=== PATIENT | male | born 1965 | race Caucasian/White ===

== ENCOUNTER 2019-10-02 11:13 | Emergency (ER) | payer OTHER, SELFPAY ==
[2019-10-02 11:29] VITALS: BP 132/76; PULSE 64; RESP 16; TEMP 36.7; O2SAT 99
--- NOTE | 2019-10-02 11:45 | ED.EAR ---
HPI - Ear Problem General Chief complaint: Ear Stated complaint: ear infection Time Seen by Provider: 10/02/19 11:45 Source: patient Mode of arrival: ambulatory Limitations: no limitations History of Present Illness HPI Narrative: Gerald Rodgers is a 54 yo male with PMH HTN, high cholesterol, who express care with left-sided ear pain x4 to 5 days. Does not take antihistamines due to cardiology meds. Patient states that his ear has been bothering him for a while but this enlarged lymph node on the left has become quite tender. And overall not improving Related Data Home Medications Medication Instructions Recorded Confirmed amlodipine 10 mg PO DAILY 04/06/19 10/02/19 atorvastatin 80 mg PO DAILY 04/06/19 10/02/19 losartan 25 mg PO DAILY 04/06/19 10/02/19 metoprolol succinate 100 mg PO DAILY 04/06/19 10/02/19 Allergies Allergy/AdvReac Type Severity Reaction Status Date / Time No Known Allergies Allergy Verified 10/02/19 11:47 Review of Systems Review of Systems: Narrative: CONSTITUTIONAL: Denies fever, chills, sweats. EYES: Denies visual changes, redness, discharge. ENT: Denies rhinorrhea, congestion, sore throat, left otalgia. Enlarged node under left jaw CARDIOVASCULAR: Denies chest pain, palpitations, edema. RESPIRATORY: Denies dyspnea, wheezing, cough GASTROINTESTINAL: Denies abdominal pain, nausea, vomiting, diarrhea. GENITOURINARY: Denies dysuria, hematuria, abnormal discharge SKIN: Denies rash or itching. NEUROLOGIC: Denies numbness, or focal weakness. PSYCHIATRIC: Denies anxiety or depression. [facility]LY [facility] Past Medical History Medical History Anxiety Hypercholesteremia Hypertension OCD (obsessive compulsive disorder) Right hand fracture Surgical History Surgical History History of inguinal hernia repair Social History Social History Smoking status: Former smoker Alcohol intake: never Gender identity (if verbalized by the patient): Male Comments At time of signature, I agree with nursing past medical, surgical, social and family history. There is no relevant family history pertinent to the presenting complaint. Exam Narrative: Exam Narrative: GENERAL: This is a well-nourished, well-developed patient, in mild distress. HEAD: normocephalic, atraumatic. EYES: Sclera clear/white. Vision is grossly intact. EARS: External ears normal, TMs normal without perforation R ear pain with fluid behind TM. Hearing grossly intact. NOSE: External nose normal without nasal discharge, nares without redness, no rhinorrhea. THROAT: Mucous membranes moist, posterior pharynx R LN enlargement [place] NECK: Neck supple, non-tender CARDIOVASCULAR: Regular rate and rhythm without murmurs, gallops, or rubs. RESPIRATORY: Clear to auscultation. Breath sounds equal bilaterally. No wheezes, rales, or rhonchi. GASTROINTESTINAL: Abdomen soft, non-tender, SKIN: warm, intact with no suspicious lesions or rash, good texture and turgor. NEURO: awake, alert, and oriented to person, place and time. There were no obvious focal neurologic abnormalities. Steady gait EXTREMITIES: Normal range of motion. BACK: Nontender without deformity Course Course Emergency Course: started on keflex - discussed using raul martinez - follow up with pcp Vital Signs Vital signs: Vital Signs Temperature 98.0 F 10/02/19 11:29 Pulse Rate 64 10/02/19 11:29 Respiratory Rate 16 10/02/19 11:29 Blood Pressure 132/76 10/02/19 11:29 Pulse Oximetry 99 10/02/19 11:29 Temperature 98.0 F 10/02/19 11:29 Pulse Rate 64 10/02/19 11:29 Respiratory Rate 16 10/02/19 11:29 Blood Pressure 132/76 10/02/19 11:29 Pulse Oximetry 99 10/02/19 11:29 Medical Decision Making Differential Diagnosis Differential Diagnosis: Ear pain versus otitis versus viral sy
== END 2019-10-02 11:58 | disposition home or self-care (01) ==
PROVIDERS: Emergency Provider Nurse Practitioner; PCP Emergency Medicine
DX: H66.002 Acute suppurative otitis media without spontaneous rupture of ear drum, left ear (principal); I10 Essential (primary) hypertension; E78.00 Pure hypercholesterolemia, unspecified; Z87.891 Personal history of nicotine dependence
CPT/HCPCS: 99213; G0463

== ENCOUNTER 2020-04-07 10:05 | Emergency (ER) | payer OTHER, SELFPAY ==
--- NOTE | 2020-04-07 10:09 | ED.GENADULT ---
HPI - General Adult General Chief complaint: Ear Stated complaint: ear pain Time Seen by Provider: 04/07/20 10:09 Source: patient Mode of arrival: ambulatory Limitations: no limitations History of Present Illness HPI narrative: 54-year-old male patient presents to the [facility] with complaints of left ear pain for the past 2 days. Patient states the pain does radiate down to the left jaw periodically. Patient states that first when he wakes up in the morning he does feel slightly dizzy but as he gets up and moves around it does improve. Denies any fevers, body aches or chills. Denies any runny nose, stuffy nose or sore throat. Patient denies any coughing, chest pain or shortness of breath. Related Data Home Medications Medication Instructions Recorded Confirmed amlodipine 10 mg PO DAILY 04/06/19 04/07/20 atorvastatin 80 mg PO DAILY 04/06/19 04/07/20 losartan 50 mg PO DAILY 04/06/19 04/07/20 metoprolol succinate 100 mg PO DAILY 04/06/19 04/07/20 Allergies Allergy/AdvReac Type Severity Reaction Status Date / Time No Known Allergies Allergy Verified 04/07/20 10:17 Review of Systems Review of Systems: Narrative: CONSTITUTIONAL: Denies fever, chills, or sweats. EYES: Denies visual changes, redness, or discharge. ENT: Denies rhinorrhea, congestion, sore throat, positive left otalgia. CARDIOVASCULAR: Denies chest pain, palpitations, or edema. RESPIRATORY: Denies cough or dyspnea. GASTROINTESTINAL: Denies abdominal pain, nausea, vomiting, or diarrhea. GENITOURINARY: Denies dysuria or hematuria. SKIN: Denies rash or itching. MUSCULOSKELETAL: Denies back pain, joint pain, or myalgia. NEUROLOGIC: Denies headache, numbness, or weakness. PSYCHIATRIC: Denies anxiety or depression. [facility] Past Medical History Medical History (Updated 04/07/20 @ 10:25 by OTIS Gross) Anxiety Hypercholesteremia Hypertension OCD (obsessive compulsive disorder) Right hand fracture Surgical History Surgical History History of inguinal hernia repair Social History Social History Smoking status: Former smoker Alcohol intake: never Gender identity (if verbalized by the patient): Male Comments At the time of my signature I agree with nursing past medical history, surgical, social, and family history. There is no relevant family history pertinent to the presenting complaint. Exam Narrative: Exam Narrative: GENERAL: Well-appearing, well-nourished, and in no acute distress. HEAD: Normocephalic, atraumatic. EYES: PERRLA and EOMI. ENT: Nares clear, no rhinorrhea or epistaxis. Mucous membranes moist. Posterior pharynx does have what appears to be an aphthous ulcer noted to the left posterior pharynx. No erythema noted to bilateral ears but does appear to have a little bit of fluid noted to bilateral ears. No erythema or swelling noted to the canals. NECK: Supple. No lymphadenopathy CHEST: Clear to auscultation. No respiratory distress. HEART: Regular rate and rhythm. No murmur heard. Normal peripheral pulses. ABDOMEN: Soft, nontender, nondistended, normal active bowel sounds. EXTREMITIES: Normal range of motion. No edema. SKIN: Warm, dry, no rash. NEURO: No focal deficits. Alert and oriented x3. Course Vital Signs Vital signs: Vital Signs Temperature 36.5 C 04/07/20 10:17 Pulse Rate 80 04/07/20 10:17 Respiratory Rate 20 04/07/20 10:17 Blood Pressure 159/81 H 04/07/20 10:17 Pulse Oximetry 100 04/07/20 10:17 Temperature 36.5 C 04/07/20 10:17 Pulse Rate 80 04/07/20 10:17 Respiratory Rate 20 04/07/20 10:17 Blood Pressure 159/81 H 04/07/20 10:17 Pulse Oximetry 100 04/07/20 10:17 Vital signs reviewed The patient has been informed that they may have pre-hypertension or Hypertension based on a BP reading in the department. I recommend that the patient call the primary care provider l
[2020-04-07 10:17] VITALS: BP 159/81; PULSE 80; RESP 20; TEMP 36.5; O2SAT 100
== END 2020-04-07 10:34 | disposition home or self-care (01) ==
PROVIDERS: Emergency Provider Nurse Practitioner Family; PCP Emergency Medicine
DX: H66.92 Otitis media, unspecified, left ear (principal); H73.893 Other specified disorders of tympanic membrane, bilateral; Z87.891 Personal history of nicotine dependence; E78.00 Pure hypercholesterolemia, unspecified; I10 Essential (primary) hypertension; F42.9 Obsessive-compulsive disorder, unspecified
CPT/HCPCS: 99213; G0463

== ENCOUNTER 2020-06-13 17:31 | Emergency (ER) | payer OTHER, SELFPAY ==
[2020-06-13] VITALS (11 sets, daily range): BP systolic 129–147; BP diastolic 87–97; PULSE 47–66; RESP 11–20; TEMP 36.8; O2SAT 98–100
--- NOTE | ~2020-06-13 | XR_ITS ---
EXAMINATION: XR chest 1V portable 06/13/2020 18:05 INDICATION: Left-sided chest pain PROCEDURE: AP portable chest COMPARISON: 03/27/2016 FINDINGS: The lungs are clear. The cardiomediastinal silhouette is within normal limits. There are no pleural effusions. There is no pneumothorax suspected. IMPRESSION: 1: NO ACUTE CARDIOPULMONARY DISEASE. Reviewed, dictated and finalized at location A. NESS APPLICATIONS ANALYST
--- NOTE | 2020-06-13 17:43 | ED.CHESTPAIN ---
HPI - Chest Pain General Chief Complaint: Chest Pain Stated Complaint: chest pain/dizziness Time Seen by Provider: 06/13/20 17:43 History of Present Illness HPI narrative: 54 yo male present to the ED with chest pain. He reports sudden onset of chest pressure and dizziness around 1500 today. This was associated with mild SOB. He believes that the pain was brought on by stress. It resolved spontaneously, but afterwards he was feeling extremely fatigued. He also reports being very hungry, but the thought of food nauseated him. He says that he has been under extreme stress recently and has not been sleeping. He thought his symptoms may have been due to anxiety, but was not sure. He reports that he had a negative cath 2 years ago. Par[employer] Post Order Clerk told him he may have had an TN at some point in the past. Related Data Home Medications Medication Instructions Recorded Confirmed amlodipine 10 mg PO DAILY 04/06/19 04/07/20 atorvastatin 80 mg PO DAILY 04/06/19 04/07/20 losartan 50 mg PO DAILY 04/06/19 04/07/20 metoprolol succinate 100 mg PO DAILY 04/06/19 04/07/20 Allergies Allergy/AdvReac Type Severity Reaction Status Date / Time No Known Allergies Allergy Verified 06/13/20 19:06 Review of Systems Review of Systems: All systems reviewed & are unremarkable except as noted in HPI and below Constitutional: Constitutional: Reports fatigue and Denies fever(s) Eyes: Eyes: Reports no additional eye complaints ENT: Denies sore throat Cardiovascular: Cardiovascular: Reports chest pain and Denies radiating jaw, neck or arm pain Respiratory: Respiratory: Denies chest congestion, Denies cough and Reports dyspnea Gastrointestinal: Gastrointestinal: Denies abdominal pain, Denies constipation, Denies diarrhea, Reports nausea and Denies vomiting Genitourinary: Genitourinary: Denies dysuria Musculoskeletal: Musculoskeletal: Denies back pain Neurologic: Denies confusion, Reports dizziness, Denies syncope and Reports weakness Psychiatric: Psychiatric: Reports anxiety PMFSH Past Medical History Medical History Anxiety Hypercholesteremia Hypertension OCD (obsessive compulsive disorder) Right hand fracture Surgical History Surgical History History of inguinal hernia repair Social History Social History Smoking status: Former smoker Alcohol intake: never Gender identity (if verbalized by the patient): Male Exam Const: General: healthy appearing, no acute distress and alert Orientation/consciousness: patient oriented x3 HENMT: Head: normal to inspection Neck: Neck: normal visual inspection and no lymphadenopathy Chest: Chest palpation & inspection: no tenderness Resp: Effort & Inspection: normal respiratory effort Auscultation: clear to auscultation bilaterally, no rales, no rhonchi and no wheezes Cardio: Jugular venous distension: no JVD Rate: bradycardic Rhythm: regular rhythm Heart sounds: no murmurs GI: Inspection: non-distended GI Palp: Yes Soft to palpation and No Tenderness to palpation present (GI) Skin: General skin exam: normal color Neuro: General: patient oriented x3 and moves all extremities Speech: normal speech Extrem: General: no edema Psych: Appearance: well kempt Affect: normal affect Course Vital Signs Vital signs: Vital Signs Pulse Rate 66 06/13/20 17:46 Respiratory Rate 13 06/13/20 17:46 Pulse Oximetry 100 06/13/20 17:46 Temperature 36.8 C 06/13/20 17:50 Pulse Rate 48 L 06/13/20 18:48 Respiratory Rate 17 06/13/20 18:48 Blood Pressure 129/89 06/13/20 18:02 Pulse Oximetry 98 06/13/20 18:48 MDM - Chest Pain MDM Narrative Medical decision making narrative: Troponin negative, More than 3 hours since onset and currently pain free so additional unlikely to be of benefit. EKG adelia
--- NOTE | 2020-06-13 17:46 | ECG_ITS ---
Measurements Intervals [place] Rate: 51 P: 7 SC: 155 QRS: 3 QRSD: 105 T: 11 QT: 420 QTc: 387 Interpretive Statements SINUS BRADYCARDIA BORDERLINE T WAVE ABNORMALITY- INFERIOR LEADS BASELINE ARTIFACT- I, II, III, AVR, AVL, AVF BORDERLINE ECG Electronically Signed On 06-14-2020 16:05:28 LIFE SCIENCE TECHNICAL OFFICER by [place] Mitchell D.O.
--- NOTE | 2020-06-13 17:50 | PC.NURSE ---
patient here with episode of left chest pain. see initial notes. pain free now. alert. oriented. denies needs at this time. call light in reach.
[2020-06-13] MEDS: SODIUM CHLORIDE 0.9% IV 1,000 ML 999 ML IV CONT (17:59)
[2020-06-13 18:04] LABS: Basophils Percent Auto 0.4 % (0.2-1.2); Eosinophils Absolute Auto 0.4 K/mm3 (0-0.3); Eosinophils Percent Auto 4.6 % (0-4.4); Hematocrit 43.4 % (42.0-52.0); Immature Granulocyte Absolute 0.02 K/mm3 (0.00-0.031); Immature Granulocyte Percent A 0.3 % (0-0.5); Lymphocytes Absolute Auto 1.24 K/mm3 (0.9-3.2); Lymphocytes Percent Auto 16.1 % (18.3-44.2); Mean Corpuscular HGB Conc 36.9 g/dl (32-36); Mean Corpuscular Hemoglobin 30.3 pg (26-34); Mean Corpuscular Volume 82.2 fl (80-100); Mean Platelet Volume 8.6 fl (7.4-10.4); Monocytes Absolute Auto 0.5 K/mm3 (0.1-0.6); Monocytes Percent Auto 6.9 % (2.6-8.5); Neutrophils Absolute Auto 5.5 K/mm3 (1.3-6.7); Neutrophils Percent Auto 71.7 % (45.5-73.1); Platelet Count Result 302 k/mm3 (150-375); Red Blood Count 5.28 M/mm3 (4.6-6.20); Red Cell Distribution Width 12.8 % (11.5-14.5); White Blood Count 7.7 K/mm3 (4.5-10.0)
--- NOTE | 2020-06-13 18:05 | PC.NURSE ---
SL inserted. labs sent. on x ray operator. EKG already done. patient updated on current treatment plan and expected wait time. assessments documented.
[2020-06-13 18:17] LABS: Alanine Aminotransferase 18 U/L (4-50); Albumin Level 4.6 g/dL (3.5-5.1); Alkaline Phosphatase 115 U/L (38-126); Anion Gap 9 mmol/L (8-16); Aspartate Amino Transferase 21 U/L (17-59); Bilirubin,Total 1.2 mg/dL (0.2-1.3); Blood Urea Nitrogen 9 mg/dL (9-20); Calcium 9.2 mg/dL (8.4-10.2); Carbon Dioxide 28 mmol/L (22-30); Chloride 104 mmol/L (98-107); Estimated CRCL calculation 109 ml/min; Estimated Glomerular Filt Rate > 60; Glucose 112 mg/dL (75-110); Potassium 3.6 mmol/L (3.4-5.0); Sodium 141 mmol/L (137-145)
[2020-06-13 18:21] LABS: INR 0.9; Prothrombin Time 13.1 Seconds (11.1-14.7)
[2020-06-13 18:23] LABS: Partial Thromboplastin Time 27.6 SECONDS (22.3-36.8)
[2020-06-13 18:28] LABS: Troponin I < 0.012 ng/mL (0.000-0.034)
--- NOTE | 2020-06-13 18:55 | PC.NURSE ---
resting on stretcher. no complaints. pain free. waiting for further orders from provider vs disposition. patient is aware.
== END 2020-06-13 19:28 | disposition home or self-care (01) ==
PROVIDERS: Emergency Provider Emergency Medicine; PCP Emergency Medicine
DX: R07.89 Other chest pain (principal); E78.00 Pure hypercholesterolemia, unspecified; I10 Essential (primary) hypertension; Z87.891 Personal history of nicotine dependence; R00.1 Bradycardia, unspecified; R94.31 Abnormal electrocardiogram [ECG] [EKG]
CPT/HCPCS: 36415; 71045; 80053; 84484; 85025; 85610; 85730; 93005; 96360; 99284; J7030

== ENCOUNTER 2023-09-19 13:23 | Emergency (ER) | payer OTHER, SELFPAY ==
[2023-09-19 13:39] VITALS: BP 132/89; PULSE 80; RESP 18; TEMP 36.3; O2SAT 98
--- NOTE | 2023-09-19 13:44 | ED.DENTAL ---
HPI - Dental/Oral General Chief complaint: Dental/Oral Stated complaint: dental pain Source: patient Mode of arrival: ambulatory History of Present Illness HPI Narrative: 58-year-old male presented for complaint of left upper dental over the past 3 days. He states this started after eating hard shell tacos. Endorses history of poor dentition and abscess. States he can feel some drainage to the site. Denies facial swelling. Taking Tylenol. MD Complaint: tooth pain Related Data Home Medications Medication Instructions Recorded Confirmed amlodipine 10 mg tablet 10 mg PO DAILY 04/06/19 09/19/23 atorvastatin 80 mg tablet 80 mg PO DAILY 04/06/19 09/19/23 losartan 25 mg tablet 50 mg PO DAILY 04/06/19 09/19/23 metoprolol succinate 100 mg 100 mg PO DAILY 04/06/19 09/19/23 tablet,extended release 24 hr Allergies Allergy/AdvReac Type Severity Reaction Status Date / Time No Known Allergies Allergy Verified 09/19/23 13:40 Review of Systems Review of Systems: CONSTITUTIONAL: Denies body aches, fever, chills ENT: Denies rhinorrhea, congestion, sore throat, or otalgia. Reports dental pain CARDIOVASCULAR: Denies chest pain, palpitations RESPIRATORY: Denies cough or dyspnea. SKIN: Denies rash, itching, or wounds. MUSCULOSKELETAL: Denies myalgia. NEUROLOGIC: Denies headache, numbness, tingling, or weakness. [facility] Past Medical History Medical History Anxiety Hypercholesteremia Hypertension OCD (obsessive compulsive disorder) Right hand fracture Surgical History Surgical History History of inguinal hernia repair Social History Social History Smoking status: Former smoker Alcohol intake: never Gender identity (if verbalized by the patient): Male Comments At time of signature, I have reviewed and agree with nursing past medical, surgical, social and family history unless otherwise noted. Please see nursing chart for further information. There is no relevant family history pertinent to the presenting complaint Exam Narrative: GENERAL: Appears in mild pain; no acute distress. HEAD: Normocephalic, atraumatic. No facial swelling. EYES: EOMI. No redness or drainage. Conjunctivae normal. ENT: Dental pain location of #14, mild swelling to gum line, tender, no active drainage; poor dentition throughout. Mucous membranes pink and moist. TMs normal bilaterally. Throat normal. Uvula midline. no dysphagia, odynophagia, dysphonia, or dyspnea. No uvular deviation or soft palate edema. NECK: Normal AROM. No lymphadenopathy. no induration below mandible, no neck pain. CHEST: No respiratory distress. Clear to auscultation. HEART: Regular rate and rhythm. No murmur appreciated. SKIN: Warm, dry, no rash. Normal skin turgor. NEURO: No focal deficits. Alert and oriented x3. Gait steady. Course Course Emergency Course: Patient is aware of diagnosis, understands and agrees to treatment plan. Anticipatory guidance given. Patient agrees to follow-up as directed and is aware of reasons to seek care at the emergency department. Portions of this record may have been created with voice recognition software Level of Care: Express Care Visit Vital Signs Vital signs: Vital Signs Temperature 97.3 F L 09/19/23 13:39 Pulse Rate 80 09/19/23 13:39 Respiratory Rate 18 09/19/23 13:39 Blood Pressure 132/89 09/19/23 13:39 Pulse Oximetry 98 09/19/23 13:39 Oxygen Delivery Room Air 09/19/23 13:39 Temperature 97.3 F L 09/19/23 13:39 Pulse Rate 80 09/19/23 13:39 Respiratory Rate 18 09/19/23 13:39 Blood Pressure 132/89 09/19/23 13:39 Pulse Oximetry 98 09/19/23 13:39 Oxygen Delivery Room Air 09/19/23 13:39 MDM - Dental/Oral MDM Narrative Medical decision making narrative: Patients pain and complaint coupled
== END 2023-09-19 13:56 | disposition home or self-care (01) ==
PROVIDERS: Emergency Provider Nurse Practitioner Family
DX: K04.7 Periapical abscess without sinus (principal); F41.9 Anxiety disorder, unspecified; E78.00 Pure hypercholesterolemia, unspecified; I10 Essential (primary) hypertension; F42.9 Obsessive-compulsive disorder, unspecified
CPT/HCPCS: 99213; G0463

== ENCOUNTER 2024-12-10 12:23 | Emergency (ER) | payer OTHER, SELFPAY ==
--- OUTSIDE RECORDS SUMMARY | 2024-12-10 12:28 | XMS_ITS | Referral Summary ---
Author Organization [facility] Address [address] [place] [address] Care Team Providers Care Labor Training Manager Name Role Phone Unknown, Notinfile Primary Care Provider Unavail able Encounters Date Type Department Care Team Description 10/05/2024 2:30 PM CDT Office Visit [facility] Cardiology [address] [facility] [address] [address] Leelee Tipton NP Coronary artery disease involving [place] coronary artery of teller heart without angina pectoris (Primary Dx); Essential hypertension; Dyslipidemia (high LDL; low HDL); Chronic heart failure with preserved ejection fraction (HCC) from Last 3 Months Allergies No known active allergies Medications aspirin 81 mg enteric coated tablet Take 1 tablet (81 mg total) by mouth daily Active losartan (COZAAR) 100 mg tablet TAKE 1 TABLET(100 MG) BY MOUTH DAILY 90 tablet 2 5 Active amLODIPine (NORVASC) 10 mg tablet TAKE 1 TABLET(10 MG) BY MOUTH DAILY 90 tablet 5 Active atorvastatin (LIPITOR) 80 mg tablet TAKE 1 TABLET(80 MG) BY MOUTH EVERY NIGHT 90 tablet 1 5 Active potassium chloride ER 10 mEq CR tablet TAKE 1 TABLET(10 MEQ) BY MOUTH DAILY 90 tablet 2 5 Active metoprolol XL (TOPROL-XL) 100 mg 24 hr tablet TAKE 1 TABLET(100 MG) BY MOUTH DAILY 90 tablet 1 5 Active metoprolol XL (TOPROL-XL) 100 mg 24 hr tablet Take 1 tablet (100 mg total) by mouth daily 90 tablet 1 08/05/12/08/19 25 Discontinued Active Problems Problem Noted Date Diagnosed Date Coronary artery disease invo lving [place] coronary artery of [place]er heart without angina pectoris 04/24/2023 Thoracic aortic atherosclerosis 04/24/2023 Bilateral carotid artery stenosis 04/24/2023 Essential hypertension 04/24/2023 Dyslipidemia (high LDL; low HDL) 04/24/2023 Carotid artery stenosis 08/09/2020 Chest pain 07/04/2020 Dizziness 07/04/2020 Blood glucose abnormal 07/14/2018 Dyspnea on exertion 07/14/2018 Obstructive sleep apnea syndrome 07/14/2018 Edema 05/17/2018 Heart failure with preserved ejection fraction 0 05/17/2018 Coronary arteriosclerosis 03/31/2018 Aortic root dilatation 02/25/2018 Anxiety 01/24/2018 Electrocardiogram abnormal 01/24/2018 Hyperlipidemia 01/24/2018 Hypertriglyceridemia 01/24/2018 Vitamin D deficiency 01/24/2018 Essential hypertension 01/24/2018 Social History Tobacco Use Types Packs/Day Years Used Date Smoking Tobacco: Former Cigarettes Smokeless Tobacco: Never Sex and Gender Information Value Date Recorded Sex Assigned at Not on file Legal Sex Male 2:47 PM PARALEGAL Gender Identity Not on file Sexual Orientation Not on file Last Filed Vital Signs Vital Sign Reading Time Taken Comments Blood Pressure 152/79 10/05/2024 2:30 PM CDT Pulse 75 10/05/2024 2:30 PM CDT Temperature - - Respiratory Rate - - Oxygen Saturation 97% 10/05/2024 2:30 PM CDT Inhaled Oxygen Concentration - - Weight 96.8 kg (213 lb 8 oz) 10/05/2024 2:30 PM CDT Height 188 cm (6' 2) 10/05/2024 2:30 PM CDT Body Mass Index 27.41 10/05/2024 2:30 PM CDT Plan of Treatment Not on file [place] [address] [place] [address] Care Teams Labor Training Manager Relationship Specialty Start Date End Date Unknown, Notinfile PCP - General 10/05/24
--- OUTSIDE RECORDS SUMMARY | 2024-12-10 12:28 | XMS_ITS | Clinical Summary ---
Author Organization [facility] Address [address] [place] [address] Care Team Providers Care Material Handling Warehouse Supervisor Name Role Phone Unknown, Notinfile Primary Care Provider Unavail able Allergies No known active allergies Medications aspirin [...] total) by mouth daily 90 tablet 1 4 12/08/19 25 Discontinued Active Problems Problem Noted Date Diagnosed Date Coronary artery disease invo lving [place] coronary artery of [place] heart without angina pectoris 04/24/2023 Thoracic aortic [...] Vitamin D deficiency 01/24/2018 Essential hypertension 01/24/2018 Encounters Date Type Department Care Team Description 10/05/2024 2:30 PM CDT Office Visit [facility] Cardiology [address] [facility] [address] [place] [address] Leelee Tipton NP Coronary artery disease involving [place] coronary artery of [place] heart without angina pectoris (Primary Dx); Essential hypertension; Dyslipidemia (high LDL; low HDL); Chronic heart failure with preserved ejection fraction (HCC) from Last 3 Months Surgical History Surgery Date Site/Laterality Comments HERNIA REPAIR Medical History Medical History Date Comments Coronary artery disease Hyperlipidemia Hypertension CHF (congestive heart failure) (HCC) Sleep apnea Social History Tobacco Use Types Packs/Day Years Used Date Smoking Tobacco: Former Cigarettes Smokeless Tobacco: Never Sex and Gender Information Value Date Recorded Sex Assigned at Not on file Legal Sex Male 2:47 PM VENEER GLUER Gender Identity Not on file Sexual Orientation Not on file Obstetrics History Last Filed Vital Signs Vital Sign Reading [...] 10/05/2024 2:30 PM CDT Plan of Treatment Health Maintenance Due Date Last Done Comments Colon Cancer Screening-Colonoscopy 1967 Depression Screening 1967 Hepatitis C Screening 1967 Prostate Cancer Screening-PSA 1967 Hepatitis B Screening 09/04/1985 Regular Well Visit/Exam 18-64 09/04/1985 Pneumococcal vaccine <65 (1 of 2 - PCV) 09/04/1986 DTaP/Tdap/Td Vaccine (1 - Tdap) 03/23/2016 6 Zoster Vaccine (1 of 2) 09/04/2017 Influenza Vaccine (#1) 2025 Insurance Care Teams Material Handling Warehouse Supervisor Relationship Specialty Start Date End Date Unknown, Notinfile PCP - General 10/05/24
[2024-12-10 12:31] VITALS: BP 136/91; PULSE 70; RESP 14; TEMP 36.6; O2SAT 97
--- NOTE | 2024-12-10 12:48 | ED_ITS ---
HPI - Dental/Oral General Chief complaint: Dental/Oral Stated complaint: dental pain Time Seen by Provider: 12/10/24 12:35 Source: patient Mode of arrival: ambulatory Limitations: no limitations History of Present Illness HPI Narrative: 59-year-old male presents with left upper dental pain. Has been sensitive for the past month, pain increased over the last 2-3 days. Taking [id number] Tylenol ibuprofen to treat pain. 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 All systems reviewed and negative except as noted above. Related Data Home Medications ?Medication ?Instructions ?Recorded ?Confirmed ?Last Taken ?Type amlodipine 10 mg tablet 10 mg PO DAILY 04/06/19 09/19/23 Unknown History atorvastatin 80 mg tablet 80 mg PO DAILY 04/06/19 09/19/23 Unknown History losartan 25 mg tablet 50 mg PO DAILY 04/06/19 09/19/23 Unknown History metoprolol succinate 100 mg 100 mg PO DAILY 04/06/19 09/19/23 Unknown History tablet,extended release 24 hr potassium chloride 10 mEq meq PO 12/10/24 Unknown History tablet,extended release Allergies Allergy/AdvReac Type Severity Reaction Status Date / Time No Known Allergies Allergy Verified 12/10/24 12:34 [facility] Past Medical History Medical History (Updated 12/10/24 @ 12:45 by Annemarie Arita NP) Anxiety OCD (obsessive compulsive disorder) Right hand fracture Hypertension Hypercholesteremia Surgical History Surgical History History of inguinal hernia repair Social History Social History Smoking status: Former smoker Alcohol intake: never Gender identity (if verbalized by the patient): Male Comments At time of signature, agree with nursing past medical, surgical, social and family history. There is no relevant family history pertinent to the presenting complaint. Exam Narrative: GENERAL: This is a well-nourished, well-developed patient, in no apparent distress. HEAD: normocephalic, atraumatic. EYES: PERRL. Sclera clear/white. Vision is grossly intact. EARS: External ears normal NOSE: External nose normal MOUTH: tender to tooth #11. tooth is broken with cavity and decay. no significant swelling or fluctuance NECK: Neck supple, non-tender without lymphadenopathy, masses or thyromegaly. CARDIOVASCULAR: Regular rate and rhythm without murmurs, gallops, or rubs. RESPIRATORY: Clear to auscultation. Breath sounds equal bilaterally. No wheezes, rales, or rhonchi. SKIN: warm, Dry, intact with no suspicious lesions or rash, good texture and turgor. NEURO: awake, alert, and oriented to person, place and time. There were no obvious focal neurologic abnormalities. EXTREMITIES: No joint tenderness, effusion, or edema noted. Course Course Level of Care: Express Care Visit Vital Signs Vital signs: Vital Signs Temperature 36.6 C 12/10/24 12:31 Pulse Rate 70 12/10/24 12:31 Respiratory Rate 14 12/10/24 12:31 Blood Pressure 136/91 H 12/10/24 12:31 Pulse Oximetry 97 12/10/24 12:31 Oxygen Delivery Room Air 12/10/24 12:31 Temperature 36.6 C 12/10/24 12:31 Pulse Rate 70 12/10/24 12:31 Respiratory Rate 14 12/10/24 12:31 Blood Pressure 136/91 H 12/10/24 12:31 Pulse Oximetry 97 12/10/24 12:31 Oxygen Delivery Room Air 12/10/24 12:31 reviewed MDM - Dental/Oral MDM Narrative Medical decision making narrative: Will treat dental infection with Antibiotic. Is on wait list for dental school. Patient is well-appearing, nontoxic. Discharge Plan Discharge Clinical Impression: Toothache Patient Disposition: Home Condition: Stable Instructions: Antibiotic Form, Toothache (ED) Additional Instructions: Take antibiotic as prescribed until gone. Follow-up with dentist at next available appointment. Patient Language: Tajik Prescriptions: New amoxicillin 875 mg tablet 875 mg PO Q12H 10 Days Qty: 20 0RF ibuprofen 800 mg tablet 800 mg PO Q6-8H PRN (Reason: pain) Qty: 30 0RF No Action amlodipine 10 mg Tablet 10 mg PO DAILY atorvastatin 80 mg Tablet 80 mg PO DAILY metoprolol succinate 100 mg Tablet Extended Release 24 Hr 100 mg PO DAILY losartan 25 mg Tablet 50 mg PO DAILY potassium chloride 10 mEq tablet extended release PO Follow-up/Referrals: PHYSICIAN,MACHINE TOOL OPERATOR [Primary Care Provider] - Time of Disposition: 12:47
== END 2024-12-10 12:50 | disposition home or self-care (01) ==
PROVIDERS: Emergency Provider Nurse Practitioner Family
DX: K08.89 Other specified disorders of teeth and supporting structures (principal); I10 Essential (primary) hypertension; E78.00 Pure hypercholesterolemia, unspecified; Z87.891 Personal history of nicotine dependence
CPT/HCPCS: 99213; G0463